=== PATIENT | male | born 1990 | race Caucasian/White ===

== ENCOUNTER 2019-05-06 19:37 | Emergency (ER) | payer OTHER ==
[2019-05-06] MEDS ORDERED: NORMAL SALINE 1000 ML 1,000 ML IV ONE (19:49)
[2019-05-06] MEDS ORDERED: DEXAMETHASONE SOD PHOS INJ 10 MG/1 ML VIAL IV ONE (19:50)
--- NOTE | 2019-05-06 19:51 | ER Document Report ---
ED Medical Screen (RME) - General Chief Complaint: Headache Stated Complaint: HEADACHE Time Seen by Provider: 05/06/19 19:40 Mode of Arrival: Ambulatory Information source: Patient Notes: Patient presents complaining of global headache pain that started at 2 PM and gradually worsened since then. Patient states that she does have a history of migraines although this headache is not typical of her usual migraines. Patient describes headache pain is severe. Patient did take her Tylenol and propanolol at home without improvement of her symptoms. Patient did vomit one time. Patient is allergic to NSAIDs and drove herself here tonight. I have greeted and performed a rapid initial assessment of this patient. A comprehensive ED assessment and evaluation of the patient, analysis of test results and completion of the medical decision making process will be conducted by additional ED providers. Physical Exam - Vital signs Vitals: Temp Pulse Resp BP Pulse Ox 97.8 F 70 17 135/77 H 97 05/06/19 19:47 05/06/19 19:47 05/06/19 19:47 05/06/19 19:47 05/06/19 19:47 - General General appearance: Appears well, Alert - Neurological Neuro grossly intact: Yes Raheem Coma Scale Eye Opening: Spontaneous [place] Coma Scale Verbal: Oriented Raheem Coma Scale Motor: Obeys Commands Raheem Coma Scale Total: 15 Course - Vital Signs Vital signs: Temp Pulse Resp BP Pulse Ox 97.8 F 70 17 135/77 H 97 05/06/19 19:47 05/06/19 19:47 05/06/19 19:47 05/06/19 19:47 05/06/19 19:47
[2019-05-06] MEDS ORDERED: ONDANSETRON HCL INJ/PF 4 MG/2 ML SDV IV ONE (20:26)
--- NOTE | 2019-05-06 21:32 | RADIOLOGY REPORT (SQ) ---
EXAM DESCRIPTION: CT HEAD WITHOUT IV CONTRAST COMPLETED DATE/TME: 05/06/2019 19:49 CLINICAL HISTORY: 28 years Male [employer] COMPARISON: None. TECHNIQUE: Contiguous axial CT images obtained through the brain without IV contrast. This exam was performed according to our department optimization program which includes automated exposure control, adjustment of the mA and/or kv according to patient size and/or use of iterative reconstruction technique. FINDINGS: The ventricles and sulci are within normal limits for the patient's age. No midline shift or mass effect. No masses identified. No acute intracranial hemorrhage. No fluid or significant mucosal thickening in the visualized paranasal sinuses. No depressed calvarial fractures. IMPRESSION: No acute intracranial abnormality is identified.
[2019-05-06] MEDS ORDERED: ONDANSETRON ODT 4 MG TAB (6 TAB/ER DISP) PO PRN (21:53)
--- NOTE | 2019-05-06 21:55 | ER Document Report ---
ED General - General Chief Complaint: Headache Stated Complaint: HEADACHE Time Seen by Provider: 05/06/19 19:40 Primary Care Provider: GUERO,TOMMY [Primary Care Provider] - Follow up as needed Mode of Arrival: Ambulatory - [facility] Notes: Patient is a 28-year-old female with a history of migraines who presents to the emergency department for evaluation of a migraine. She states this been started about 2:00 today while she was at [employer]. Is over her entire head. It is not the worst headache of her life, it did not come on suddenly, but she states it is a significant migraine for her, so she presents to the ED for further evaluation. She had 2 episodes of emesis, describes them as what she had had for dinner. She states she got hot and cold after vomiting, but denies any ida fevers or chills. No visual changes, moving her arms and legs without difficulty. - Related Data Allergies/Adverse Reactions: ibuprofen Allergy (Verified 05/06/19 19:55) NSAIDS (Non-Steroidal Anti-Inflamma Allergy (Verified 05/06/19 19:55) Sulfa (Sulfonamide Antibiotics) Allergy (Verified 05/06/19 19:55) Home Medications: Propanolol. Unknown daily anxiety medication Past Medical History - General Information source: Patient - Social History Smoking Status: Never Smoker Family History: Reviewed & Not Pertinent Patient has suicidal ideation: No Patient has homicidal ideation: No Neurological Medical History: Reports: Hx Migraine Psychiatric Medical History: Reports: Hx Anxiety Review of Systems - Review of Systems Constitutional: No symptoms reported EENT: No symptoms reported Cardiovascular: No symptoms reported Respiratory: No symptoms reported Gastrointestinal: See HPI Genitourinary: No symptoms reported Musculoskeletal: No symptoms reported Skin: No symptoms reported Neurological/Psychological: See HPI Physical Exam - Vital signs Vitals: Temp Pulse Resp BP Pulse Ox 97.8 F 70 17 135/77 H 97 05/06/19 19:47 05/06/19 19:47 05/06/19 19:47 05/06/19 19:47 05/06/19 19:47 - Notes Notes: Vital signs reviewed, please refer to chart. Head is normocephalic, atraumatic. Pupils equal round, reactive to light. Neck is supple without meningismus. Heart is regular rate and rhythm. Lungs are clear to auscultation bilaterally. Abdomen is soft, nontender, normoactive bowel sounds throughout. Extremities without cyanosis, clubbing. Posterior calves are nontender. Peripheral pulses are equal. Skin is warm and dry. Patient is awake, alert, oriented x3. Cranial nerves II - XII are grossly intact without focal neurological deficits. Strength is plus 5 out of 5 bilateral upper and lower extremities. Sensation is intact. Reflexes symmetrical. Intact [id number], rapid alternating movements, [id number]. Course - Re-evaluation Re-evalutation: 05/06/19 21:53 Patient presents emergency department for evaluation. The patient states to me that this is a typical migraine for her. She has no neurological deficits, no nuchal rigidity. She had a CT scan ordered through triage which was found to be negative. She is feeling significantly improved after medication. I will send her home with some Zofran in case her nausea returns. Otherwise she is to follow-up with primary care, return to the ED with worsening. - Vital Signs Vital signs: Temp Pulse Resp BP Pulse Ox 97.8 F 70 17 135/77 H 97 05/06/19 19:47 05/06/19 19:47 05/06/19 19:47 05/06/19 19:47 05/06/19 19:47 Discharge - Discharge Clinical Impression: Migraine Qualifiers: Migraine type: without aura Status migrainosus presence: without status migrainosus Intractability: not intractable Qualified Code(s): G43.009 - Migraine without aura, not intractable, without status migrainosus Condition: Stable Disposition: HOME, SELF-CARE Instructions: Antinausea Medication ([facility]), Migraine Headache ([facility]) Additional Instructions: Rest, stay well-hydrated with small, frequent sips of fluids. Zofran as needed for nausea. Follow-up with primary care this week. Return to the ED with worsening or new concerning symptoms of any sort. [facility]errals: [facility] [Primary [facility] Provider] - Follow up as needed
[2019-05-06 22:06] VITALS: BP 126/72
== END 2019-05-06 22:07 | disposition home or self-care (01) ==
LOC: ER 19:37
DX: G43.909 Migraine, unspecified, not intractable, without status migrainosus (principal); R11.10 Vomiting, unspecified; F41.9 Anxiety disorder, unspecified; Z79.899 Other long term (current) drug therapy; Z88.8 Allergy status to other drugs, medicaments and biological substances; Z88.2 Allergy status to sulfonamides
CPT/HCPCS: 99283; 96374; 96375; 70450; J2405; J1100